=== PATIENT | female | born 2000 | race Caucasian/White ===

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

== ENCOUNTER 2020-03-25 07:00 | Outpatient (CLI) | payer OTHER | END 2020-03-25 23:59 | disposition home or self-care (01) | LOC: COV 07:00 | PROVIDERS: ATTEND Family Medicine | DX: Z20.822 Contact with and (suspected) exposure to COVID-19 (principal) ==

== ENCOUNTER 2020-05-09 08:00 | Outpatient (CLI) | payer OTHER ==
[2020-05-10 20:46] LABS: CHLAMYDIA TRACHOMATIS DNA NEGATIVE (NEGATIVE); NEISSERIA GONORRHOEAE DNA NEGATIVE (NEGATIVE); TRICHOMONAS VAGINALIS DNA NEGATIVE (NEGATIVE)
== END 2020-05-09 23:59 ==
LOC: LAB.R 08:00
PROVIDERS: ATTEND Obstetrics & Gynecology
DX: Z11.3 Encounter for screening for infections with a predominantly sexual mode of transmission (principal)
CPT/HCPCS: 87491; 87591; 87661

== ENCOUNTER 2020-05-18 11:10 | Outpatient (CLI) | payer OTHER ==
--- NOTE | 2020-05-18 12:24 | Ultrasound Report ---
PROCEDURE: Pelvic w/Transvaginal INDICATIONS: PELVIC PAIN TECHNIQUE: Real-time scanning was performed of the pelvic organs, with image documentation. Additional endovagi nal scanning was necessary due to incomplete visualization of the adnexal and endometrial structures by transabdominal scanning. COMPARISON: 08/10/2018 FINDINGS: This study is limited by body habitus. A mild amount of free fluid can be seen. Uterus: Uterus is normal in size at 8.6 x 4.7 x 5.5 cm. The endometrium measures 13 mm in combined thickness. Nabothian cysts are incidentally noted. Ovaries: The right ovary measures 3 x 3.1 x 2.6 cm and the left ovary measures 3.6 x 3.3 x 2.2 cm. N o significant ovarian abnormalities are seen. Bilateral renal cysts are seen, including a mildly co mplex right ovarian cyst that measures up to 1.6 cm. No adnexal masses are seen. IMPRESSION: There is a mild amount of free fluid seen. Mildly complex right ovarian cyst that measures up to 1.6 cm, which likely relates to a resolving hem orrhagic cyst. If clinically appropriate, please consider a short-term follow-up ultrasound in [address] [place] [address] to ensure resolution/improvement. Reviewed by: Alvaro Velasquez MD on 05/18/2020 11:22 AM TOM Approved by: Alvaro Velasquez MD on 05/18/2020 11:22 AM TOM Station ID: [id number]
== END 2020-05-18 11:11 | disposition home or self-care (01) ==
LOC: DI 11:10
PROVIDERS: ATTEND Obstetrics & Gynecology
DX: R10.2 Pelvic and perineal pain (principal); N83.201 Unspecified ovarian cyst, right side

== ENCOUNTER 2020-06-28 19:41 | Outpatient (CLI) | payer OTHER ==
--- NOTE | 2020-06-28 21:47 | Ultrasound Report ---
PROCEDURE: Pelvic w/Transvaginal INDICATIONS: OVARIAN CYST TECHNIQUE: Real-time scanning was performed of the pelvic organs, with image documentation. Additional endovagi nal scanning was necessary due to incomplete visualization of the adnexal and endometrial structures by transabdominal scanning. COMPARISON: None. FINDINGS: No pathologic free abdominal or pelvic fluid. Uterus: Uterus is normal in size at 8.0 x 4.3 x 5.3 cm. The endometrium measures 15.3 mm in combine d thickness. Ovaries: 44 mm right ovarian cyst is present. 17 mm left ovarian cyst is present. IMPRESSION: 1. No acute process. 2. Bilateral ovarian cysts, within expected limits. Reviewed by: Jose Avilez MD on 06/28/2020 9:45 PM PDT Approved by: Jose Avilez MD on 06/28/2020 9:45 PM PDT Station ID: [id number]
== END 2020-06-28 19:42 | disposition home or self-care (01) ==
LOC: DI 19:41
PROVIDERS: ATTEND Obstetrics & Gynecology
DX: N83.202 Unspecified ovarian cyst, left side (principal); N83.201 Unspecified ovarian cyst, right side

== ENCOUNTER 2020-07-25 08:00 | Outpatient (CLI) | payer OTHER ==
[2020-07-25 18:26] LABS: THYROID STIMULATING HORMONE 2.31 uIU/mL (0.34-5.60)
[2020-07-25 18:54] LABS: FOLLICLE STIMULATING HORMONE 3.08 mIU/mL
[2020-07-25 18:55] LABS: LUTEINIZING HORMONE 4.3 mIU/mL
== END 2020-07-25 23:59 | disposition home or self-care (01) ==
LOC: LAB.WCP 08:00
PROVIDERS: ATTEND Obstetrics & Gynecology
DX: N92.6 Irregular menstruation, unspecified (principal)
CPT/HCPCS: 36415; 81599; 82627; 83001; 83002; 84402; 84403; 84443

== ENCOUNTER 2020-08-13 16:19 | Outpatient (CLI) | payer OTHER ==
[2020-08-13] MEDS ORDERED: IOVERSOL 320 100 ML VIAL IVP ONE ×2 (16:23→17:11)
--- NOTE | 2020-08-14 10:10 | CT Report ---
PROCEDURE: ABDOMEN W/WO INDICATIONS: EVALUATE FOR ADRENAL GLANDS FOR MASSES CONTRAST: IV CONTRAST: Optiray 320 ml: 100 PO CONTRAST: *NO PO CONTRAST TECHNIQUE: Noncontrast 5 mm thick sections acquired from the diaphragms to the symphysis. 5 mm coronal and sagi ttal reformats were then performed. For radiation dose reduction, the following was used: automated exposure control, adjustment of mA and/or kV according to patient size. COMPARISON: None. FINDINGS: Image quality: Excellent. Lung bases: Lung bases are clear. Heart size is normal. Small hiatal hernia. Adrenal glands: No adrenal nodules. Adrenal glands are normal in size and morphology. Solid organs: Liver and spleen are normal in size and enhancement. Gallbladder Biliary system is non dilated. Pancreas enhances normally. Kidneys are normal in size and enhancement. No hydrone phrosis or nephrolithiasis. Peritoneum and bowel: Unenhanced bowel loops are normal in caliber and wall thickness. No free flui d or air. Nodes and vessels: No retroperitoneal or mesenteric adenopathy by size criteria. Aorta and inferior vena cava are normal in size. Miscellaneous: No ventral hernias. Bones: No suspicious bony lesions. No vertebral body compression fractures. IMPRESSION: 1. Normal adrenal glands bilaterally. No adrenal masses. Reviewed by: Jose Alfredo Mo MD on 08/14/2020 10:09 AM PDT Approved by: Jose Alfredo Mo MD on 08/14/2020 10:09 AM PDT Station ID: [id number]
== END 2020-08-13 16:20 | disposition home or self-care (01) ==
LOC: DI 16:19
PROVIDERS: ATTEND Obstetrics & Gynecology
DX: L65.8 Other specified nonscarring hair loss (principal)
CPT/HCPCS: 74170; Q9967

== ENCOUNTER 2020-12-01 14:19 | Outpatient (CLI) | payer OTHER ==
--- NOTE | 2020-12-01 16:57 | Ultrasound Report ---
PROCEDURE: Pelvic w/Transvaginal INDICATIONS: RIGHT SIDE OVARIAN CYST TECHNIQUE: Real-time scanning was performed of the pelvic organs, with image documentation. Additional endovagi nal scanning was necessary due to incomplete visualization of the adnexal and endometrial structures by transabdominal scanning. COMPARISON: 06/28/2020, 05/18/2020, 08/09/2018. FINDINGS: No pathologic free abdominal or pelvic fluid. Uterus: Uterus is normal in size at 8.5 x 4.2 x 4.9 cm. The endometrium measures 9 mm in combined t hickness, with a trilaminar appearance. Ovaries: The right ovary is only seen transabdominally. The right ovary measures 4.5 x 2.5 x 4.4 cm and demonstrates a 3.7 cm simple appearing cyst. The left ovary measures 2.2 x 1.6 x 1.8 cm. No significant ovarian abnormalities are seen. More gold n 12 follicles can be seen involving the left ovary. No adnexal masses are seen. This study is limited by body habitus and bowel gas. IMPRESSION: A 3.7 cm right ovarian cyst is seen, which is decreased in size compared to the 06/28/2020 examination. In a patient this age, this almost certainly benign. If clinically appropriate, please consider a s hort-term follow-up ultrasound in 6 weeks to ensure resolution/improvement. More than 12 follicles can be seen involving the left ovary. Please consider polycystic ovarian syndr ome. Reviewed by: Alvaro Velasquez MD on 12/01/2020 3:55 PM TOM Approved by: Alvaro Velasquez MD on 12/01/2020 3:55 PM TOM Station ID: [id number]
== END 2020-12-01 14:20 | disposition home or self-care (01) ==
LOC: DI 14:19
PROVIDERS: ATTEND Obstetrics & Gynecology
DX: N83.201 Unspecified ovarian cyst, right side (principal); N92.6 Irregular menstruation, unspecified; N94.6 Dysmenorrhea, unspecified; R10.9 Unspecified abdominal pain; R10.2 Pelvic and perineal pain; R93.89 Abnormal findings on diagnostic imaging of other specified body structures